=== PATIENT | female | born 1970 | race Caucasian/White ===

== ENCOUNTER 2024-02-28 13:08 | Outpatient (REF) | payer MEDICAID, SELFPAY ==
--- NOTE | ~2024-02-28 | XR_ITS ---
EXAMINATION: XR RIBS, LEFT CLINICAL INFORMATION: Left-sided rib pain COMPARISON: None available. TECHNIQUE: 3 views of the left ribs and a PA view of the chest were obtained. FINDINGS: Lungs are clear. No consolidation, pneumothorax, or pleural effusion. The cardiomediastinal silhouette and pulmonary vasculature are normal. Ribs are intact. No fractures are identified. Mild acromioclavicular synovitis bilaterally. 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 XR/XR ribs LT min 3V w CXR1V IMPRESSION: 1. No acute pulmonary findings. 2. No rib fractures. 3. Mild acromioclavicular synovitis bilaterally. Electronically signed by: Zoran Baca MD 03/22/2024 10:09 PM EDT
== END 2024-02-28 13:09 | disposition home or self-care (01) ==
LOC: HO.XRAY 13:08
PROVIDERS: Visit Provider Registered Nurse
DX: R07.81 Pleurodynia (principal); T14.8XXD Other injury of unspecified body region, subsequent encounter
CPT/HCPCS: 71101